=== PATIENT | female | born 1990 | race African-American/Black ===

== ENCOUNTER 2017-12-08 23:57 | Emergency (ER) | payer SELFPAY ==
[2017-12-09] MEDS ORDERED: BUTALB/ACETAMINOPHEN/CAFFEINE 1 TAB EACH PO ONE (01:10)
--- NOTE | 2017-12-09 01:17 | ER Document Report ---
ED Medical Screen (RME) - General Chief Complaint: Headache Stated Complaint: HEADACHE Time Seen by Provider: 12/09/17 01:10 Mode of Arrival: Ambulatory Information source: Patient Notes: 27-year-old nontoxic-appearing female patient presenting with headaches intermittent for the last 7 days. Patient reports that the pain starts in the left catholic and radiates to her eye, patient reports headaches are gradual in onset. Patient reports light sensitivity denies any nausea or vomiting. Patient denies any fevers. Patient also reports body aches to her low back with sharp pains. 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 Patient reports she has tried BC powders and Advil with no relief of her back pain or headaches. I have greeted and performed a rapid initial assessment of this patient. A comprehensive ED assessment and evaluation of the patient, analysis of test results and completion of the medical decision making process will be conducted by additional ED providers. Dictation of this chart was performed using voice recognition software; therefore, there may be some unintended grammatical errors. TRAVEL OUTSIDE OF THE [place] IN LAST 30 DAYS: No
[2017-12-09] MEDS ORDERED: METHOCARBAMOL 750 MG TABLET PO ONE (02:11)
--- NOTE | 2017-12-09 02:11 | ER Document Report ---
ED General - General Chief Complaint: Headache Stated Complaint: HEADACHE Time Seen by Provider: 12/09/17 01:10 Mode of Arrival: Ambulatory Information source: Patient Notes: Patient is an otherwise healthy 27-year-old female who presents with chief complaint of headache over the last 7 days. Patient reports the headache is intermittent, feels like 1 of her usual headaches but has been unrelieved by Goody powders as she normally states is her headaches. Patient is also complaining of some right sided back pain after doing some heavy lifting at work. TRAVEL OUTSIDE OF THE [place] IN LAST 30 DAYS: No Past Medical History - General Information source: Patient - Social History Smoking Status: Never Smoker Frequency of alcohol use: None Drug Abuse: None Family History: Reviewed & Not Pertinent - Medical History Medical History: Negative Surgical Hx: Negative - Immunizations Hx Diphtheria, Pertussis, Tetanus Vaccination: Yes Review of Systems - Review of Systems Constitutional: No symptoms reported EENT: No symptoms reported Cardiovascular: No symptoms reported Respiratory: No symptoms reported Gastrointestinal: No symptoms reported Genitourinary: No symptoms reported Female Genitourinary: No symptoms reported Musculoskeletal: See HPI Skin: No symptoms reported Hematologic/Lymphatic: See HPI Neurological/Psychological: No symptoms reported Physical Exam - Vital signs Vitals: Temp Pulse Resp BP Pulse Ox 98.1 F 50 L 16 100/54 L 100 12/09/17 03:03 12/09/17 03:03 12/09/17 03:03 12/09/17 03:03 12/09/17 03:03 - Notes Notes: PHYSICAL EXAMINATION: GENERAL: Well-appearing, well-nourished and in no acute distress. HEAD: Atraumatic, normocephalic. EYES: Pupils equal round extraocular movements intact, conjunctiva are normal. ENT: Nares patent NECK: Normal range of motion LUNGS: No respiratory distress Musculoskeletal: Normal range of motion NEUROLOGICAL: Normal speech, normal gait. PSYCH: Normal mood, normal affect. SKIN: Warm, Dry, normal turgor, no rashes or lesions noted. Course - Re-evaluation Re-evalutation: Patient's examination is unremarkable. Patient is alert, oriented and appears well. Neurological exam is within normal limits. Patient denies any fever other illness. Patient reports that her headache is the same as the headaches she usually gets every couple of months. Has a gradual onset and is intermittent. Patient reports significant relief of her symptoms after medication administration. Will be discharged home at this time. - Vital Signs Vital signs: Temp Pulse Resp BP Pulse Ox 98.1 F 50 L 16 100/54 L 100 12/09/17 03:03 12/09/17 03:03 12/09/17 03:03 12/09/17 03:03 12/09/17 03:03 Discharge - Discharge Clinical Impression: Headache Qualifiers: Headache type: unspecified Headache chronicity pattern: acute headache Intractability: not intractable Qualified Code(s): R51 - Headache Low back strain Qualifiers: Encounter type: initial encounter Qualified Code(s): S39.012A - Strain of muscle, fascia and tendon of lower back, initial encounter Condition: Stable Disposition: HOME, SELF-CARE Additional Instructions: Low Back Pain Three out of every four people will have an episode of disabling back pain during their lifetime. Most commonly the pain is due to straining of the muscles and ligaments in the low back. Usual treatment includes: (1) Rest on a firm surface. Avoid lying on your stomach. (2) Ice pack the painful area. After a few days, gentle heat may be used intermittently to relax the area, or ice packs can be continued. (3) Medication may be needed -- muscle relaxers and antiinflammatory medicines are commonly used. (4) As the back improves, exercises are prescribed to strengthen the back and abdominal muscles. Your doctor will advise you on the proper care for your back at each stage in your recovery. You may be better in a few days -- or healing may take several weeks. If new symptoms of a "herniated disc" (radiation of pain, numbness, or tingling down the back of the leg or weakness in the leg) occur, you should be re-examined. Further testing may be necessary. Headache The physician does not feel that the headache you are experiencing has a serious underlying cause. Most headaches are due to emotional stress, with resultant muscle tension (tension headache). Occasionally, headaches are secondary to changes in the blood vessels of the scalp (vascular headache and migraine headache). Sometimes, a headache is the first symptom of another developing illness, such as a viral infection. You have no evidence of stroke, bleeding, meningitis, or other serious cause of your headache. The treatment of headaches varies with the severity and cause of the pain. Not all headaches need pain shots. In fact, there is evidence that using narcotics for headaches may make them worse in the long run. The physician will determine the therapy that's in your best interest. If you develop a fever, if the headache is different from any you've previously experienced, or if the headache progressively worsens, then call your physician at once or go to the emergency room. Your x-ray today was normal. Please take medications as prescribed. Please follow-up with your primary care provider in the next 3-5 days if your back pain has not resolved. Please take ibuprofen 600 mg every 6 hours for the pain. Prescriptions: Butalb/Acetaminophen/Caffeine [Fioricet (50-325-40 mg) Tablet] 1 tab PO Q4HP PRN #30 tab PRN Reason: For Headache Methocarbamol [Robaxin 750 mg Tablet] 750 mg PO ASDIR PRN #40 tablet PRN Reason: Forms: Return to Work
--- NOTE | 2017-12-09 02:11 | RADIOLOGY REPORT (SQ) ---
EXAM DESCRIPTION: XR LUMBAR SPINE ANTEROPOSTERIOR, LATERAL, AND OBLIQUES COMPLETED DATE/TME: 12/09/2017 01:11 CLINICAL HISTORY: 27 years, Female, back pain LMP 12/06/17 COMPARISON: None. FINDINGS: 4 views of the lumbar spine. 5 nonrib-bearing lumbar vertebrae. Lumbar vertebral body height preserved. Intervertebral disc height preserved. No cortical step-offs or subluxation. No abnormalities of the visualized portions of the sacrum or pelvis. Visualized abdominal soft tissues demonstrate no definite abnormalities. IMPRESSION: No acute abnormalities of the lumbar spine by plain film criteria. 2010 [employer]- All Rights Reserved
[2017-12-09] MEDS ORDERED: DIPHENHYDRAMINE HCL 50 MG/ML VIAL IM ONE (02:57)
[2017-12-09] MEDS ORDERED: KETOROLAC TROMETHAMINE 60 MG/2 ML SDV IM ONE (02:58)
[2017-12-09 03:05] VITALS: BP 100/54
== END 2017-12-09 03:37 | disposition home or self-care (01) ==
LOC: ER 23:57
DX: S39.012A Strain of muscle, fascia and tendon of lower back, initial encounter (principal); R51 Headache; X50.0XXA Overexertion from strenuous movement or load, initial encounter; Y99.0 Civilian activity done for income or pay
CPT/HCPCS: 99284; 96372; 72110; J3490; J1200; J1885